=== PATIENT | female | born 1995 ===

== ENCOUNTER 2017-12-13 15:13 | Emergency (ER) | payer BC ==
[2017-12-13 15:21] VITALS: BMI 23.8
[2017-12-13 15:24] VITALS: TEMP 98.9; O2SAT 100
--- NOTE | 2017-12-13 16:11 | ED PDOC ---
Arrival/HPI - General Chief Complaint: Female Genitourinary Time Seen by Provider: 12/13/17 15:33 Historian: Patient - History of Present Illness Narrative History of Present Illness (Text): 12/13/17 16:06 22 year old female, whose past medical history includes , who presents to the Emergency Department complaining of vaginal bleeding today. Patient notes she went to [facility] last week with menstrual cramps and it was determined that she was . Patient had a follow up appointment Wednesday but neglected to go. Patient has experienced miscarriages in all prior pregnancies but is unsure why. Patient stated she does not want pelvic exam. Patient denies any fever, chills, chest pain, shortness of breath, nausea, vomiting, diarrhea, urinary symptoms, back pain, neck pain, headache, dizziness, or any other complaints. Time/Duration: Prior to Arrival Symptom Onset: Sudden Symptom Course: Unchanged Activities at Onset: Light Context: Home Past Medical History - Provider Review Nursing Documentation Reviewed: Yes - Infectious Disease Hx of Infectious Diseases: None - Psychiatric Hx Substance Use: No - Anesthesia Hx Anesthesia: No - Suicidal Assessment Feels Threatened In Home Enviroment: No Family/Social History - Physician Review Nursing Documentation Reviewed: Yes Family/Social History: Unknown Family HX Smoking Status: Never Smoked Hx Alcohol Use: No Hx Substance Use: No Allergies/Home Meds Allergies/Adverse Reactions: Allergies No Known Allergies Allergy (Verified 12/13/17 15:21) Home Medications: Home Meds Medication Instructions Recorded Confirmed Folic Acid [FA-8] 800 mcg PO DAILY 12/13/17 12/13/17 Nitrofurantoin Monohyd/M-Cryst 100 mg PO BID 12/13/17 12/13/17 [Nitrofurantoin [place]-Mcr 100 mg] Review of Systems - Physician Review All systems were reviewed & negative as marked: Yes - Review of Systems Constitutional: Normal Eyes: Normal ENT: Normal Respiratory: Normal. absent: SOB, Cough Cardiovascular: Normal. absent: Chest Pain Gastrointestinal: Normal. absent: Abdominal Pain, Diarrhea, Nausea, Vomiting Genitourinary Female: Vaginal Bleeding. absent: Dysuria, Frequency Musculoskeletal: Normal. absent: Back Pain, Neck Pain Skin: Normal. absent: Rash Neurological: Normal. absent: Headache Endocrine: Normal Hemo/Lymphatic: Normal Psychiatric: Normal Physical Exam Vital Signs Reviewed: Yes Vital Signs Temp Pulse Resp BP Pulse Ox 12/13/17 15:23 98.9 F 81 17 111/77 100 Temperature: Afebrile Blood Pressure: Normal Pulse: Regular Respiratory Rate: Normal Appearance: Positive for: Well-Appearing, Non-Toxic, Comfortable Pain Distress: None Mental Status: Positive for: Alert and Oriented X 3 - Systems Exam Head: Present: Atraumatic, Normocephalic Pupils: Present: PERRL Extroacular Muscles: Present: EOMI Conjunctiva: Present: Normal Mouth: Present: Moist Mucous Membranes Neck: Present: Normal Range of Motion Respiratory/Chest: Present: Clear to Auscultation, Good Air Exchange. No: Respiratory Distress, Accessory Muscle Use Cardiovascular: Present: Regular Rate and Rhythm, Normal S1, S2. No: Murmurs Abdomen: No: Tenderness, Distention, Peritoneal Signs Back: Present: Normal Inspection Upper Extremity: Present: Normal Inspection. No: Cyanosis, Edema Lower Extremity: Present: Normal Inspection. No: Edema Neurological: Present: GCS=15, CN II-XII Intact, Speech Normal Skin: Present: Warm, Dry, Normal Color. No: Rashes Psychiatric: Present: Alert, Oriented x 3, Normal Insight, Normal Concentration Medical Decision Making ED Course and Treatment: 12/13/17 16:12 Impression: 22 year old female presents to the Emergency Department complaining of vaginal bleeding today. Plan: -- US Transvaginal -- Labs -- UA -- Reassess and disposition Progress Notes: 12/13/17 17:40 US Transvaginal reviewed, shows: IMPRESSION: Possible early intrauterine gestation. Gestational age based on menstrual history 6 weeks 4 days. Sac measurement below threshold for calculation of reliable gestational age. - Lab Interpretations Lab Results: 12/13/17 16:17 12/13/17 16:20 Lab Results 12/13/17 16:20: Blood Type O POSITIVE, Antibody Screen Negative, BBK History Checked Patient has bt 12/13/17 16:20: Sodium 141, Potassium 3.6, Chloride 104, Carbon Dioxide 27, Anion Gap 14, BUN 13, Creatinine 0.6 L, Est GFR ( Amer) > 60, Est GFR ( Non-Af Amer) > 60, Random Glucose 84, Calcium 9.6, Phosphorus 3.6, Magnesium 2.1 , Total Bilirubin 0.3, AST 28, ALT 17, Alkaline Phosphatase 71, Total Protein 7.9, Albumin 4.5, Globulin 3.5, Albumin/Globulin Ratio 1.3 12/13/17 16:17: Beta HCG, Quant 571.30 H 12/13/17 16:17: Urine Color Yellow, Urine Appearance Turbid, Urine pH 7.0, Ur Specific [place] 1.025, Urine Protein Trace H, Urine Glucose (UA) Negative, Urine Ketones Trace H, Urine Blood Large H, Urine Nitrate Negative, Urine Bilirubin Negative, Urine Urobilinogen 1.0 H, Ur Leukocyte Esterase Trace H, Urine RBC 2 - 5, Urine WBC 0 - 2, Ur Epithelial Cells 3 - 4, Urine Other Mucus 12/13/17 16:17: PT 12.3, INR 1.08 12/13/17 16:17: WBC 7.5, RBC 4.01, Hgb 12.2, Hct 36.3, MCV 90.5, MCH 30.4, MCHC 33.6, RDW 11.8, Plt Count 149, MPV 10.6, Gran % 59.0, Lymph % (Auto) 32.3, [place] % (Auto) 6.7 H, Eos % (Auto) 2.0, Baso % (Auto) 0.0, Gran # 4.39, Lymph # (Auto ) 2.4, [place] # (Auto) 0.5, Eos # (Auto) 0.2, Baso # (Auto) 0.00 - RAD Interpretation Radiology Orders: 12/13/17 15:54 OB TRANSVAGINAL [US] Stat - Scribe Statement The provider has reviewed the documentation as recorded by the Scribe Jamia Noel All medical record entries made by the Scribe were at my direction and personally dictated by me. I have reviewed the chart and agree that the record accurately reflects my personal performance of the history, physical exam, medical decision making, and the department course for this patient. I have also personally directed, reviewed, and agree with the discharge instructions and disposition. Disposition/Present on Arrival - Present on Arrival Any Indicators Present on Arrival: No History of DVT/PE: No History of Uncontrolled Diabetes: No Urinary Catheter: No History of Decub. Ulcer: No History Surgical Site Infection Following: None - Disposition Have Diagnosis and Disposition been Completed?: Yes Diagnosis: Threatened in early Disposition: HOME/ ROUTINE Disposition Time: 17:45 Patient Plan: Discharge Condition: GOOD Discharge Instructions (ExitCare): Threatened Miscarriage (DC) Additional Instructions: Nikki- Your blood type is O Positive. Your Quantitative Beta HCG 517 (roughly 5 weeks ) There is a gestational sac but no yolk sack, gestational pole or heart beat on the ultrasound. Unfortunately, we do not have access to your results from the other hospital so all we can tell you is that this is possibly a miscarriage. You need to get the results from the other hospital and follow up with your software project manager tomorrow. Return to an ED if symptoms worsen or new symptoms occur. This is considered HIGH RISK. Best- Dr. Jeffery Yung Referrals: Carito Aguilar, DO [Primary Care Provider] - Follow up with primary Forms: [facility] (Chinese), SCHOOL NOTE, WORK NOTE
[2017-12-13 16:32] LABS: EOS # 0.2 (0.0-0.7); GRAN # 4.39 (1.4-6.5); HEMOGLOBIN 12.2 g/dL (12.0-16.0); LYMPH # 2.4 (1.2-3.4); LYMPH % 32.3 % (22.0-35.0); MEAN CELL VOLUME 90.5 fl (80.0-105.0); MEAN CORPUSCULAR HEMOGLOBIN 30.4 pg (25.0-35.0); MEAN CORPUSCULAR HGB CONC 33.6 g/dl (31.0-37.0); MEAN PLATELET VOLUME 10.6 fl (7.0-11.0); MONO # 0.5 (0.1-0.6); MONO % 6.7 % (1.0-6.0); RBC 4.01 10^6/uL (3.5-6.1); RED CELL DISTRIBUTION WIDTH 11.8 % (11.5-14.5); WHITE BLOOD COUNT 7.5 10^3/ul (4.5-11.0)
[2017-12-13 16:33] LABS: URINE BILIRUBIN NEGATIVE (NEGATIVE); URINE BLOOD LARGE (NEGATIVE); URINE GLUCOSE (UA) NEGATIVE (NEGATIVE); URINE LEUKOCYTE ESTERASE TRACE Leu/uL (NEGATIVE); URINE PROTEIN TRACE mg/dL (<30 mg/dL)
[2017-12-13 16:34] LABS: URINE APPEARANCE TURBID (CLEAR); URINE COLOR YELLOW (YELLOW)
[2017-12-13 16:37] LABS: INR 1.08; PROTHROMBIN TIME 12.3 SECONDS (9.4-12.5)
[2017-12-13 16:42] LABS: ALB/GLOB RATIO 1.3 (1.1-1.8); ALBUMIN 4.5 g/dL (3.0-4.8); ALT/SGPT 17 U/L (7-56); AST/SGOT 28 U/L (14-36); BLOOD UREA NITROGEN 13 mg/dL (7-21); CALCIUM 9.6 mg/dL (8.4-10.5); GFR AFRICAN-AMERICAN > 60; GFR NON-AFRICAN AMERICAN > 60
[2017-12-13 17:03] LABS: URINE WBC 0 - 2 /hpf (0-6)
--- NOTE | 2017-12-13 17:20 | US ---
Date of service: 12/13/2017 HISTORY: ? [place]isc[place], VB 7Wks COMPARISON: None available. TECHNIQUE: Standard protocol for this study/examination. FINDINGS: UTERUS: Measures 4.1 x 5.1 x 8.2 cm. Normal in size and appearance. No fibroid or other mass lesion seen. ENDOMETRIUM: Measures 13.5 mm in diameter. Small gestational sac 6.5 x 6.9 mm. No visible yolk sac or gestational pole identified. CERVIX: No cervical abnormality identified. RIGHT OVARY: Measures 2.7 x 3.1 x 3.8 cm. No solid mass. Normal flow. Simple cyst 1.9 x 2 x 2.8 cm LEFT OVARY: Measures 1.1 x 1.6 x 2.2 cm. No solid mass. Normal flow. Simple cyst 7 x 9 mm. FREE FLUID: No significant free fluid noted. OTHER FINDINGS: None. IMPRESSION: Possible early intrauterine gestation. Gestational age based on menstrual history 6 weeks 4 days. Sac measurement below threshold for calculation of reliable gestational age.
[2017-12-14 00:06] VITALS: BP 115/74; PULSE 78; RESP 18
== END 2017-12-13 18:10 | disposition home or self-care (01) ==
LOC: ED 15:13
DX: O20.0 Threatened abortion (principal); Z3A.01 Less than 8 weeks gestation of pregnancy